=== PATIENT | male | born 1990 | race Caucasian/White ===

== ENCOUNTER 2016-09-16 08:30 | Emergency (ER) | payer OTHER ==
--- NOTE | 2016-09-16 09:17 | RAD ---
CHEST - 2 VIEWS COMPARISON: None. HISTORY: Cough. FINDINGS: Views: Frontal and lateral chest Lungs: Normal Heart and vessels: Normal Trachea and bronchi: Normal Mediastinum and caryn: Normal Costophrenic sulci: Normal Chest wall and bones: Normal. Upper abdomen: Normal. IMPRESSION: Negative 2 view chest.
[2016-09-17 15:47] LABS: BORDETELLA PARAPERTUSSIS Negative (Negative); BORDETELLA PERTUSSIS Negative (Negative)
== END 2016-09-16 09:12 | disposition home or self-care (01) ==
LOC: ED 08:30
DX: J20.9 Acute bronchitis, unspecified (principal)